=== PATIENT | male | born 1970 | race Caucasian/White ===

== ENCOUNTER → 2018-07-06 | Outpatient (CLI) | payer BC | END | disposition home or self-care (01) | LOC: PLD 08:32 → LAB SHORT 08:32 | DX: D18.01 Hemangioma of skin and subcutaneous tissue (principal) | CPT/HCPCS: 88305 ==

== ENCOUNTER 2018-07-22 01:22 | Emergency (ER) | payer BC ==
[~2018-07-22] VITALS: Ht 182.9 cm; Wt 111.1 kg
[2018-07-22] MEDS ORDERED: CIPHYDOTSU RIGHTEAR (01:53)
== END 2018-07-22 02:01 | disposition home or self-care (01) ==
LOC: ER 01:22
DX: T16.1XXA Foreign body in right ear, initial encounter (principal)
CPT/HCPCS: 99282